=== PATIENT | male | born 1965 | race Caucasian/White ===

== ENCOUNTER → 2022-07-27 | Outpatient (CLI) | payer MEDICAID ==
[~2022-07-27] MED LIST: GADOTERATE 0.5 MMOL/ML (CLARISCAN) 20 ML VIAL IV ONE
--- NOTE | 2022-07-27 18:07 | Diagnostic Imaging Report ---
PROCEDURE: MR imaging of the brain with and without contrast. TECHNIQUE: Multiplanar, multisequence MR imaging of the brain was performed with and without contrast. INDICATION: Brain aneurysm, history of gamma knife for AVM. COMPARISON: None. FINDINGS: The ventricles and cortical sulci appear age-appropriate. There is no midline shift. No acute ischemia is seen. There are a few areas of T2 hyperintensity in the white matter which are likely from chronic microvascular disease. There is a focal area of confluent T2 hyperintensity in the right temporal lobe white matter, which may be the site of the previous procedure. No mass is seen. The hippocampi appear symmetric and generally normal in size. Paranasal sinuses demonstrate no acute abnormality. The globes appear intact. Major vessel flow voids are seen. There is mild focal linear contrast enhancement in the right temporal lobe. No other focal area of abnormal enhancement is appreciated. IMPRESSION: Focal T2 hyperintensity and linear peripheral enhancement in the right temporal lobe. This is thought to represent post-therapeutic changes from the patient's prior procedure. Very small residual AVM or neoplasm is thought less likely, but is difficult to exclude without a prior comparison. Dictated by: Dictated on workstation # [id number]
== END ==
LOC: RAD 13:29
PROVIDERS: ATTEND Nurse Practitioner Family
DX: I67.1 Cerebral aneurysm, nonruptured (principal)
CPT/HCPCS: 70553

== ENCOUNTER 2023-03-27 01:55 | Observation (INO) | payer MEDICAID ==
[~2023-03-27] VITALS: Ht 165.1 cm; Wt 83.4 kg
[2023-03-27] MEDS ORDERED: ANTACID SUSPENSION 30 ML UDC PO PRN (06:00)
[2023-03-27] MEDS ORDERED: ACETAMINOPHEN 325 MG TABLET PO PRN (06:00)
[2023-03-27] MEDS ORDERED: ONDANSETRON 4 MG ORAL DISSOLVE TABLET PO PRN (06:00)
[2023-03-27] MEDS ORDERED: CALCIUM CARBONATE 500 MG CHEW TABLET PO PRN (06:00)
[2023-03-27] MEDS ORDERED: ONDANSETRON INJECTION 4 MG/2 ML (SDV) IV PRN (06:00)
[2023-03-27] MEDS ORDERED: BISACODYL 10 MG SUPPOSITORY PR PRN (06:00)
[2023-03-27] MEDS: ENOXAPARIN 40 MG/0.4 ML SYRINGE SC SCH (09:29)
[2023-03-27] MEDS: LACOSAMIDE 100 MG TABLET PO SCH (09:29)
[2023-03-27] MEDS: ACETAMINOPHEN 500 MG TABLET PO SCH ×3 (09:30→21:12)
[2023-03-27] MEDS: LevETIRAcetam 1,000 MG TABLET PO SCH ×2 (09:30→21:12)
[2023-03-27] MEDS ORDERED: LEVE10006 PO (10:01)
[2023-03-27] MEDS ORDERED: ASPI-1238 PO (10:01)
[2023-03-27] MEDS ORDERED: CLOP75TA28 PO (10:01)
[2023-03-27] MEDS ORDERED: LACO100T4 PO (10:01)
[2023-03-27] MEDS ORDERED: AMLO-250 PO (10:01)
[2023-03-27] MEDS ORDERED: ASPI-999 PO (10:01)
[2023-03-27] MEDS ORDERED: ATOR40TA70 PO (10:01)
[2023-03-27] MEDS ORDERED: LORA10TA7 PO (10:01)
[2023-03-27] MEDS ORDERED: IBUP-1780 PO (10:01)
[2023-03-27] MEDS ORDERED: ESCI20TA39 PO (10:01)
[2023-03-27] MEDS ORDERED: TMSL.4C PO (10:01)
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
--- NOTE | 2023-03-27 11:03 | Tele-ICU Progress Note ---
Subjective Date Seen by a Provider: Mar 27, 2023 Time Seen by a Provider: 10:38 Subjective/Events-last exam (Tele-ICU Physician , Progress Note ) Service provided via interactive audio and video telecommunications E-CARE system to a patient admitted to ICU bed in [facility]. Patient is seen today due to persistent need of ICU care Available chart/ vitals / labs / Images reviewed Video assessment done using teleICU camera, rest of exam as per RN He is a 57-year-old male with past medical history of AVM of brain which was treated with gamma knife long time ago has been having seizures on and off now presented with increasing seizures and admitted to the ICU for evaluation and management. Unfortunately we do not have a neurologist in this institution. He is started on Keppra and because of my lacosamide. After admission to ICU he did not have any further seizures. Few months ago apparently he was admitted to [facility] where he was evaluated and optimized his medications but he still continued to get seizures. Impression 1. Recurrent seizures secondary to underlying possibly scarring from previous 9. Treatment for a aneurysm. Recommendations 1. Continue lacosamide and Keppra 2. He had lorazepam IV as needed for seizures 3. Once he is stabilized I would suggest to refer him back to . 4. We will check magnesium level. Coordination of care with primary care physician and bedside consultants. I am remotely monitoring this patient from Tele icu station in [place]. I am unable to do the bedside exam, and history/physical and pertinent information is taken from other notes in the computer and bedside staff. Reviewed with WATER ENGINEER and discussed in MDR Certain portions of this document may have been dictated utilizing voice recognition technology such as [employer]. Inherent to this technology, typographical and grammatical errors may exist. As much as I am diligent to identify and correct to these mistakes, some errors may remain in the document. Critical care time devoted to this patient today is approximately is--25 minutes Sepsis Event Evaluation Height, Weight, BMI Height: '" Weight: lbs. oz. kg; 30.77 BMI Method: Exam Exam Patient acknowledged, consented, and participated in this virtual visit which was conducted using real time audio/video Vital Signs Date Time Temp Pulse Resp B/P (MAP) Pulse Ox O2 Delivery O2 Flow Rate FiO2 03/27/23 10:00 70 25 145/85 (105) 95 Room Air 10/9/23 09:00 73 15 156/88 (110) 96 Room Air 03/27/23 08:00 75 19 134/80 (98) 92 Room Air 03/27/23 07:24 37.3 03/27/23 07:22 78 03/27/23 07:00 77 19 130/82 (98) 92 Room Air 03/27/23 06:00 81 20 123/72 (92) 91 Room Air 03/27/23 05:06 74 123/73 (87) Room Air 03/27/23 04:30 75 19 147/85 (105) 89 Room Air 03/27/23 04:15 72 36 156/85 (115) 89 Room Air 03/27/23 04:00 71 21 138/84 (105) 93 Room Air 03/27/23 04:00 98 Room Air 03/27/23 03:45 72 12 145/91 (114) 95 Room Air 03/27/23 03:30 69 18 145/86 (97) 93 Room Air 03/27/23 03:15 75 18 140/82 (97) 96 Room Air 03/27/23 03:13 65 I & O 03/27/23 07:00 Intake Total 0 ml Balance 0 ml Height & Weight Height: '" Weight: lbs. oz. kg; 30.77 BMI Method: General Appearance: Chronically ill Assessment/Plan Assessment/Plan as above Critical Care: Critically Ill Patient Time spent with patient (mins): 25 MIRI SOLIMAN MD Mar 27, 2023 11:03
[2023-03-27 11:47] LABS: ALBUMIN 4.2 GM/DL (3.2-4.5); BILIRUBIN,TOTAL 0.6 MG/DL (0.1-1.0); CALCIUM 8.8 MG/DL (8.5-10.1); CREATININE SERUM 0.8 MG/DL (0.60-1.30); POTASSIUM 3.8 MMOL/L (3.6-5.0); TOTAL PROTEIN 6.9 GM/DL (6.4-8.2)
[2023-03-27] MEDS ORDERED: IBUPROFEN 800 MG TABLET PO PRN (15:15)
[2023-03-27 23:43] VITALS: BP 145/74
[2023-03-28 03:32] VITALS: BP 130/61
[2023-03-28 05:49] LABS: HEMATOCRIT 41 % (40-54); HEMOGLOBIN 13.9 g/dL (13.3-17.7); MEAN CORPUSCULAR HEMOGLOBIN 32 pg (25-34); MEAN CORPUSCULAR HGB CONC 34 g/dL (32-36); MEAN CORPUSCULAR VOLUME 93 fL (80-99); MEAN PLATELET VOLUME 9.6 fL (9.0-12.2); PLATELET COUNT 252 10^3/uL (130-400); WHITE BLOOD COUNT 8.5 10^3/uL (4.3-11.0)
[2023-03-28] MEDS: ACETAMINOPHEN 500 MG TABLET PO SCH ×2 (05:59→13:55)
[2023-03-28] MEDS: ENOXAPARIN 40 MG/0.4 ML SYRINGE SC SCH (06:00)
[2023-03-28 06:11] LABS: ALBUMIN 4.2 GM/DL (3.2-4.5); POTASSIUM 3.9 MMOL/L (3.6-5.0)
[2023-03-28 06:12] LABS: CALCIUM 8.9 MG/DL (8.5-10.1)
[2023-03-28 06:13] LABS: TOTAL PROTEIN 7.2 GM/DL (6.4-8.2)
[2023-03-28 06:15] LABS: BILIRUBIN,TOTAL 0.4 MG/DL (0.1-1.0)
[2023-03-28 06:17] LABS: CREATININE SERUM 0.75 MG/DL (0.60-1.30)
[2023-03-28 07:17] VITALS: BP 134/79
[2023-03-28] MEDS: LevETIRAcetam 1,000 MG TABLET PO SCH (08:48)
[2023-03-28] MEDS: LACOSAMIDE 100 MG TABLET PO SCH (08:49)
[2023-03-28] MEDS ORDERED: TAMSULOSIN 0.4 MG (FLOMAX) CAP PO SCH (09:00)
[2023-03-28] MEDS ORDERED: ASPIRIN enteric coated 81MG TABLET PO SCH (09:00)
[2023-03-28] MEDS ORDERED: LORATADINE 10 MG TABLET PO SCH (09:00)
[2023-03-28] MEDS ORDERED: CLOPIDOGREL 75 MG TABLET PO SCH (09:00)
[2023-03-28] MEDS ORDERED: NON-FORMULARY MEDICATION 1 EA EA (Escitalopram Oxalate 20 MG) PO SCH (09:00)
[2023-03-28] MEDS ORDERED: amLODIPine 5 MG TABLET PO SCH (09:00)
[2023-03-28] MEDS ORDERED: CITALOPRAM 20 MG TABLET PO SCH (09:00)
[2023-03-28 11:20] VITALS: BP 130/79
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
== END 2023-03-28 15:43 | disposition home or self-care (01) ==
LOC: ICU 03:05 → UNDOADMOB 03:05 → ICU 03:06 → 4TH 17:55 → ICU 17:55 → UNDODISOB 03-28 15:43
PROVIDERS: ADMIT Family Medicine; ATTEND Family Medicine
DX: G40.909 Epilepsy, unspecified, not intractable, without status epilepticus (principal); E87.20 Acidosis, unspecified; F17.200 Nicotine dependence, unspecified, uncomplicated; Z79.899 Other long term (current) drug therapy; Z79.01 Long term (current) use of anticoagulants; Z86.73 Personal history of transient ischemic attack (TIA), and cerebral infarction without residual deficits
CPT/HCPCS: 80053 ×2; 83735; 85027; 87081; 96372 ×2; G0378 ×3; G0379; 36415

== ENCOUNTER → 2023-04-19 | Outpatient (CLI) | payer MEDICAID ==
[~2023-04-19] MED LIST changes: +AMLO-250 PO; +ASPI-1238 PO; +ASPI-999 PO; +ATOR40TA70 PO; +CLOP75TA28 PO; +ESCI20TA39 PO; -GADOTERATE 0.5 MMOL/ML (CLARISCAN) 20 ML VIAL IV ONE; +IBUP-1780 PO; +LACO100T4 PO; +LEVE10006 PO; +LORA10TA7 PO; +TMSL.4C PO
== END ==
LOC: ORTHO 11:44
PROVIDERS: ATTEND Orthopaedic Surgery
DX: M19.011 Primary osteoarthritis, right shoulder (principal)
CPT/HCPCS: 99203

== ENCOUNTER → 2023-05-03 | Outpatient (CLI) | payer MEDICAID ==
--- NOTE | 2023-05-03 11:46 | Diagnostic Imaging Report ---
INDICATION: Pain. EXAMINATION: Right shoulder MRI without contrast on 05/03/2023. TECHNIQUE: Multiplanar multisequence MRI of the shoulder without contrast. FINDINGS: There is a full-thickness tear of the subscapularis tendon with retraction of approximately 3.4 cm. Distally, the long head of the biceps tendon lies in the bicipital groove and appears to be intact. More proximally, it is poorly visualized, most likely due to prior biceps tenodesis given a focal screwlike area of artifact along its course. Correlate with surgical history. There are full-thickness retracted tears of the supraspinatus and infraspinatus tendons. Retraction is to the level of the acromioclavicular joint. Secondary superior subluxation of the humeral head is seen in relation to the glenoid. There are diffuse subchondral cysts throughout the superior border of the humerus and the abutting acromion. Acromioclavicular arthritic changes are also noted. The labrum is poorly characterized without intra-articular contrast. No gross abnormality is appreciated. There is marked atrophy and fatty infiltration throughout all muscles of the rotator cuff. The visualized axilla is unremarkable. IMPRESSION: 1. Full-thickness retracted tears of the supraspinatus, infraspinatus, and subscapularis tendons with marked atrophy and fatty infiltration of the corresponding muscles. 2. Likely prior biceps tenodesis, correlate with surgical history. 3. No definite labral tear on this noncontrast examination; otherwise, degenerative findings as above. Dictated by: Dictated on workstation # [id number]
== END ==
LOC: RAD 09:32
PROVIDERS: ATTEND Orthopaedic Surgery
DX: S46.811A Strain of other muscles, fascia and tendons at shoulder and upper arm level, right arm, initial encounter (principal); M25.811 Other specified joint disorders, right shoulder; Z98.890 Other specified postprocedural states
CPT/HCPCS: 73221